=== PATIENT | male | born 1985 | race Hispanic/Latino ===

== ENCOUNTER 2023-11-15 16:34 | Emergency (ER) | payer SELFPAY ==
[~2023-11-15] VITALS: Ht 182.9 cm; Wt 102.3 kg
[2023-11-15] MEDS ORDERED: NORCO, ANEXSIA 5/325MG TABLET (HYDROcodone/ACETAMINOPHEN) PO ONE (18:45)
[2023-11-15] MEDS ORDERED: LIDOCAINE 2% MDV 20ML VIAL As Ordered ONE (20:34)
[2023-11-15] MEDS ORDERED: CEPH500C PO (23:00)
[2023-11-15] MEDS ORDERED: NORCO 5/325MG TABLET (HOME DOSE PACK) PO ONE (23:05)
[2023-11-15 23:15] VITALS: BP 144/82; TEMP 98; O2SAT 100
[2023-11-16] MEDS ORDERED: LIDOCAINE 2% MDV 20ML VIAL SC ONE (02:45)
== END 2023-11-15 23:21 | disposition home or self-care (01) ==
LOC: M ED 16:34
DX: S68.624A Partial traumatic transphalangeal amputation of right ring finger, initial encounter (principal); W29.8XXA Contact with other powered hand tools and household machinery, initial encounter; Y92.009 Unspecified place in unspecified non-institutional (private) residence as the place of occurrence of the external cause; Y93.89 Activity, other specified; Y99.8 Other external cause status